=== PATIENT | female | born 1985 | race Two or more races ===

== ENCOUNTER → 2025-02-08 | Outpatient (CLI) | payer OTHER, SELFPAY ==
--- NOTE | 2025-02-08 16:15 | XR_ITS ---
Examination: Retroperitoneal ultrasound, complete Technique: Multiple high resolution grayscale images of the retroperitoneum obtained, including kidneys and bladder. Exam date and time:February 08, 2025 1553 hrs. Indications: Urinary tract infections beginning 8 months ago Findings: Right kidney 11.7 cm cortex 2.2 cm Small calculi, the largest in the upper pole 11 mm Mild to moderate right hydronephrosis Left kidney 10.0 cm cortex 2.1 cm Small calculi, the largest in the lower pole 6 mm Mild left hydronephrosis No bladder mass or bladder calculi Bladder prevoid volume 395 cc Impression: Bilateral renal calculi Mild to moderate right hydronephrosis Mild left hydronephrosis
--- NOTE | 2025-02-08 16:23 | XR_ITS ---
Examination: Abdomen AP single view Technique: AP portable supine abdomen, single view Exam date and time: February 08, 2025 1704 hrs. Indications: Urinary tract infections beginning May 2024. Findings: 8 mm right renal calculus No ureteral calculi Abundant stool throughout the colon Impression: 8 mm right renal calculus
== END | disposition home or self-care (01) ==
PROVIDERS: PCP Surgery; Referring Provider Surgery; Visit Provider Surgery
DX: N20.0 Calculus of kidney (principal); N13.30 Unspecified hydronephrosis
CPT/HCPCS: 74018; 76770

== ENCOUNTER → 2025-07-04 | Outpatient (CLI) | payer OTHER, SELFPAY ==
[2025-07-04 08:52] LABS: Collection Type, Urine Clean Catch
[2025-07-04 11:02] LABS: Bilirubin,Urine Negative (Negative); Blood,Urine Negative (Negative); Clarity,Urine Clear (Clear/Hazy); Color,Urine Lt-Yellow (Lt Yel-Yel); Glucose, Urine Negative (Negative); Ketones,Urine Negative (Negative); Leukocyte Esterase,Urine Positive (Negative); Nitrite,Urine Negative (Negative); PH,Urine 6.0 (5.0-7.0); Protein,Urine Negative (Neg - Trace); RBC,Urine 4 /hpf (0-3); Specific Gravity,Urine 1.025 (1.001-1.035); Squamous Epithelial Cell,Urine 9 /hpf (0-5); Transitional Epi Cells,Urine < 1 /hpf (0-5); Urobilinogen,Urine Negative mg/dL (0.0-1.0); WBC,Urine 7 /hpf (0-5)
== END | disposition home or self-care (01) ==
LOC: SLDO 08:38
PROVIDERS: Referring Provider Nurse Practitioner Family; Visit Provider Nurse Practitioner Family
DX: N39.0 Urinary tract infection, site not specified (principal)
CPT/HCPCS: 81001; 87086

== ENCOUNTER → 2025-10-18 | Outpatient (CLI) | payer OTHER, SELFPAY ==
[2025-10-18 08:22] LABS: Basophils # (Auto) 0.1 Thou/mm3 (0.0-0.2); Basophils % (Auto) 1 % (0-2.5); Eosinophils # (Auto) 0.1 Thou/mm3 (0.0-0.5); Eosinophils % (Auto) 2 % (0-10); Hematocrit 38.1 % (36.0-46.0); Hemoglobin 13.0 g/dL (12.0-16.0); Immature Granulocytes Auto 0.01 Thou/mm3 (0.00-0.00); Lymphocytes # (Auto) 2.4 Thou/mm3 (1.0-4.8); Lymphocytes % (Auto) 42 % (10-50); Mean Corpuscular HGB Conc 34.1 g/dl (31.0-37.0); Mean Corpuscular Hemoglobin 32.2 pg (25.0-35.0); Mean Corpuscular Volume 94 fL (80-100); Monocytes # (Auto) 0.3 Thou/mm3 (0.0-0.8); Monocytes % (Auto) 6 % (0-12); Neutrophils # (Auto) 2.9 Thou/mm3 (1.8-7.7); Neutrophils % (Auto) 50 % (37-80); Nucleated Red Blood Cell # 0.00 Thou/mm3 (0.00-0.00); Nucleated Red Blood Cell % 0 /100 WBC (0); Platelet Count 207 Thou/mm3 (140-440); RDW Standard Deviation 46.3 fL (36.4-46.3); Red Blood Count 4.04 Miln/mm3 (4.00-5.20); White Blood Count 5.8 Thou/mm3 (3.6-11.0)
== END | disposition home or self-care (01) ==
LOC: COPL 07:05
PROVIDERS: PCP Nurse Practitioner Family; Referring Provider Nurse Practitioner Family; Visit Provider Nurse Practitioner Family
DX: H50.9 Unspecified strabismus (principal); D64.9 Anemia, unspecified
CPT/HCPCS: 36415; 85025